=== PATIENT | male | born 1975 | race Caucasian/White ===

== ENCOUNTER 2016-05-26 17:25 | Emergency (ER) | payer MEDICAID ==
[~2016-05-26] VITALS: Ht 172.7 cm; Wt 98.7 kg
[~2016-05-26 17:25] MED LIST: DILANTIN100 MG PO
[2016-05-26 18:48] LABS: BASOPHIL % 0.3 % (0-2); PLATELET COUNT 225 x10^3mcL (130-400); RED CELL DISTRIBUTION WIDTH 14.6 % (11.5-14.5)
[2016-05-26 18:55] LABS: CALCIUM 8.7 mg/dL (8.5-10.1); CARBON DIOXIDE 30.6 mmol/L (21-32); CHLORIDE SERUM 102 mmol/L (98-107); CREATININE SERUM 0.9 mg/dL (0.7-1.3); GFR1 > 60 mL/min; GLUCOSE SERUM 107 mg/dL (74-106); POTASSIUM SERUM 3.5 mmol/L (3.5-5.1); SODIUM SERUM 139 mmol/L (136-145)
[2016-05-26 18:59] LABS: ALBUMIN 3.6 g/dL (3.4-5.0); ALKALINE PHOSPHATASE 78 U/L (46-116); ALT/SGPT 40 U/L (16-63); AST/SGOT 41 U/L (15-37); TOTAL PROTEIN, SERUM 7.5 g/dL (6.4-8.2)
[2016-05-26 20:10] VITALS: BP 144/81
== END 2016-05-26 20:10 | disposition home or self-care (01) ==
LOC: ED 17:25
PROVIDERS: Emergency Medicine
DX: G40.409 Other generalized epilepsy and epileptic syndromes, not intractable, without status epilepticus (principal); S00.03XA Contusion of scalp, initial encounter; S00.512A Abrasion of oral cavity, initial encounter; Z79.899 Other long term (current) drug therapy; W22.8XXA Striking against or struck by other objects, initial encounter; Y93.89 Activity, other specified; Y92.89 Other specified places as the place of occurrence of the external cause; Y99.8 Other external cause status
CPT/HCPCS: J1165; J1885; J2060; J3490; J7030

== ENCOUNTER 2018-05-04 15:59 | Emergency (ER) | payer MEDICAID ==
[~2018-05-04] VITALS: Ht 172.7 cm; Wt 99.8 kg
[2018-05-04 16:04] VITALS: Ht 172.7 cm; Wt 99.8 kg
[2018-05-04 16:59] LABS: CALCIUM 8.5 mg/dL (8.5-10.1); CARBON DIOXIDE 19.3 mmol/L (21-32); CHLORIDE SERUM 102 mmol/L (98-107); CREATININE SERUM 1.1 mg/dL (0.7-1.3); GFR1 > 60 mL/min; GLUCOSE SERUM 126 mg/dL (74-106); POTASSIUM SERUM 3.6 mmol/L (3.5-5.1); SODIUM SERUM 138 mmol/L (136-145)
[2018-05-04 17:04] LABS: ALBUMIN 3.6 g/dL (3.4-5.0); ALKALINE PHOSPHATASE 102 U/L (46-116); ALT/SGPT 141 U/L (16-63); AST/SGOT 125 U/L (15-37); BILIRUBIN TOTAL 0.5 mg/dL (0.20-1.00); TOTAL PROTEIN, SERUM 7.4 g/dL (6.4-8.2)
[2018-05-04 18:59] VITALS: BP 134/88
== END 2018-05-04 18:59 | disposition home or self-care (01) ==
LOC: ED 15:59
PROVIDERS: Emergency Medicine
DX: G40.909 Epilepsy, unspecified, not intractable, without status epilepticus (principal)
CPT/HCPCS: J1165; J2060; J7030

== ENCOUNTER 2018-07-25 19:40 | Emergency (ER) | payer MEDICAID ==
[~2018-07-25] VITALS: Ht 172.7 cm; Wt 104.3 kg
[2018-07-25 19:47] VITALS: Ht 172.7 cm; Wt 104.3 kg
[2018-07-25 20:40] LABS: PLATELET COUNT 283 x10^3mcL (130-400)
[2018-07-25 20:42] LABS: BASOPHIL % 0 % (0-2); RED CELL DISTRIBUTION WIDTH 15.5 % (11.5-14.5)
[2018-07-25 20:46] LABS: CALCIUM 9.6 mg/dL (8.5-10.1); CARBON DIOXIDE 24.1 mmol/L (21-32); CHLORIDE SERUM 98 mmol/L (98-107); CREATININE SERUM 1.2 mg/dL (0.7-1.3); GFR1 > 60 mL/min; GLUCOSE SERUM 114 mg/dL (74-106); POTASSIUM SERUM 4.2 mmol/L (3.5-5.1); SODIUM SERUM 136 mmol/L (136-145)
[2018-07-25 20:50] LABS: ALBUMIN 4.2 g/dL (3.4-5.0); ALKALINE PHOSPHATASE 110 U/L (46-116); ALT/SGPT 72 U/L (16-63); AST/SGOT 84 U/L (15-37); BILIRUBIN TOTAL 0.89 mg/dL (0.20-1.00); TOTAL PROTEIN, SERUM 8.1 g/dL (6.4-8.2)
[2018-07-25 22:12] VITALS: BP 133/86
== END 2018-07-25 22:12 | disposition home or self-care (01) ==
LOC: ED 19:40
PROVIDERS: Emergency Medicine
DX: S05.42XA Penetrating wound of orbit with or without foreign body, left eye, initial encounter (principal); R56.9 Unspecified convulsions; W45.8XXA Other foreign body or object entering through skin, initial encounter; Y93.E1 Activity, personal bathing and showering; Y92.002 Bathroom of unspecified non-institutional (private) residence as the place of occurrence of the external cause; Y99.8 Other external cause status
CPT/HCPCS: J1165; J1885; J2060

== ENCOUNTER 2019-01-17 12:23 | Emergency (ER) | payer MEDICAID ==
[~2019-01-17] VITALS: Ht 172.7 cm; Wt 99.8 kg
[2019-01-17 12:29] VITALS: Ht 172.7 cm; Wt 99.8 kg
[2019-01-17 13:04] LABS: CALCIUM 8.8 mg/dL (8.5-10.1); CARBON DIOXIDE 17.9 mmol/L (21-32); CHLORIDE SERUM 103 mmol/L (98-107); CREATININE SERUM 2.3 mg/dL (0.7-1.3); GFR1 33 mL/min; GLUCOSE SERUM 113 mg/dL (74-106); SODIUM SERUM 142 mmol/L (136-145)
[2019-01-17 13:07] LABS: RED CELL DISTRIBUTION WIDTH 14.4 % (11.5-14.5)
[2019-01-17 13:09] LABS: ALBUMIN 3.6 g/dL (3.4-5.0); ALKALINE PHOSPHATASE 99 U/L (46-116); ALT/SGPT 21 U/L (16-63); AST/SGOT 19 U/L (15-37); BILIRUBIN TOTAL 0.3 mg/dL (0.20-1.00); TOTAL PROTEIN, SERUM 7.8 g/dL (6.4-8.2)
[2019-01-17 13:13] LABS: AMPHETAMINE QUAL UR POSITIVE (See below)
[2019-01-17 13:28] LABS: BASOPHIL % 0 % (0-2); PLATELET COUNT 412 x10^3mcL (130-400)
[2019-01-17 15:43] VITALS: BP 134/100
== END 2019-01-17 15:43 | disposition home or self-care (01) ==
LOC: ED 12:23
PROC: 3E033GC Introduction of Other Therapeutic Substance into Peripheral Vein, Percutaneous Approach (ICD-10-PCS; principal; 2019-01-17)
DX: R56.9 Unspecified convulsions (principal); F15.10 Other stimulant abuse, uncomplicated; Z91.14 Patient's other noncompliance with medication regimen
CPT/HCPCS: J1165

== ENCOUNTER 2019-08-15 12:42 | Inpatient (IN) | payer MEDICAID ==
[~2019-08-15] VITALS: Ht 172.7 cm; Wt 100.7 kg
[2019-08-15 12:50] VITALS: Ht 172.7 cm; Wt 100.7 kg
[2019-08-15 13:37] LABS: CARBON DIOXIDE 11.7 mmol/L (21-32); CHLORIDE SERUM 101 mmol/L (98-107); CREATININE SERUM 1.7 mg/dL (0.7-1.3); GFR1 47 mL/min; GLUCOSE SERUM 182 mg/dL (74-106); POTASSIUM SERUM 3.3 mmol/L (3.5-5.1); SODIUM SERUM 142 mmol/L (136-145)
[2019-08-15 13:42] LABS: ALBUMIN 4.3 g/dL (3.4-5.0); ALKALINE PHOSPHATASE 141 U/L (46-116); ALT/SGPT 114 U/L (16-63); AST/SGOT 151 U/L (15-37); BILIRUBIN TOTAL 0.76 mg/dL (0.20-1.00); TOTAL PROTEIN, SERUM 8.7 g/dL (6.4-8.2)
[2019-08-15 14:13] LABS: BASOPHIL % 0.2 % (0-2); PLATELET COUNT 347 x10^3mcL (130-400)
[2019-08-15] MEDS ORDERED: KEPPRA500 MG PO (17:09)
[2019-08-15 17:10] LABS: UA SPECIFIC GRAVITY 1.025 (1.005-1.035); microscopic required? YES; urine erythrocyte TRACE (NEGATIVE)
[2019-08-15] MEDS ORDERED: DILANTIN100 MG PO (17:10)
[2019-08-15 17:19] LABS: AMPHETAMINE QUAL UR NONE DETECTED (See below)
[2019-08-15 19:31] LABS: IRON 249 ug/dL (65-170); TOTAL IRON BINDING CAPACITY 290 ug/dL (250-450)
[2019-08-15 19:49] LABS: RED BLOOD CELLS 4.89 M/mm3 (4.52-5.90)
[2019-08-15 22:30] VITALS: BP 126/80
[2019-08-16 06:12] VITALS: BP 130/779
[2019-08-16 06:45] LABS: BASOPHIL % 0.5 % (0-2); PLATELET COUNT 212 x10^3mcL (130-400)
[2019-08-16 06:59] LABS: ALBUMIN 3.4 g/dL (3.4-5.0); BILIRUBIN DIRECT 0.48 mg/dL (0.0-0.2); BILIRUBIN TOTAL 1.6 mg/dL (0.20-1.00); CALCIUM 8.4 mg/dL (8.5-10.1); CARBON DIOXIDE 23.1 mmol/L (21-32); CREATININE SERUM 1.9 mg/dL (0.7-1.3); MAGNESIUM 2.6 mg/dL (1.8-2.4); PHOSPHOROUS 5.1 mg/dL (2.5-4.9); POTASSIUM SERUM 4.1 mmol/L (3.5-5.1); TOTAL PROTEIN, SERUM 6.8 g/dL (6.4-8.2)
[2019-08-16 07:11] LABS: RED CELL DISTRIBUTION WIDTH 14.9 % (11.5-14.5)
[2019-08-16 08:13] VITALS: BP 119/75
[2019-08-16 12:08] VITALS: BP 120/80
[2019-08-16 12:32] VITALS: BP 129/87
[2019-08-16] MEDS ORDERED: EXTENDED PHENY200 MG PO (17:15)
== END 2019-08-16 17:44 | disposition home or self-care (01) | DRG 53 ==
LOC: ED 12:42 → DU 17:00
PROVIDERS: Emergency Medicine; ADMIT Family Medicine; ATTEND Family Medicine
DX: G40.409 Other generalized epilepsy and epileptic syndromes, not intractable, without status epilepticus (principal); N17.0 Acute kidney failure with tubular necrosis; E87.2 Acidosis; D72.829 Elevated white blood cell count, unspecified; D50.9 Iron deficiency anemia, unspecified; E87.6 Hypokalemia; R74.0 Nonspecific elevation of levels of transaminase and lactic acid dehydrogenase [LDH]; Z83.3 Family history of diabetes mellitus; Z84.1 Family history of disorders of kidney and ureter
CPT/HCPCS: 83880; G0378; G0480; J1165; J2060; J7030; J7050; Q0092

== ENCOUNTER 2019-09-28 19:57 | Emergency (ER) | payer MEDICAID ==
[~2019-09-28] VITALS: Ht 172.7 cm; Wt 100.7 kg
[~2019-09-28 19:57] MED LIST changes: +EXTENDED PHENY200 MG PO; +KEPPRA500 MG PO
[2019-09-28 20:02] VITALS: Ht 172.7 cm; Wt 100.7 kg
[2019-09-28 20:53] LABS: CALCIUM 8.4 mg/dL (8.5-10.1); CARBON DIOXIDE 11.9 mmol/L (21-32); CHLORIDE SERUM 102 mmol/L (98-107); CREATININE SERUM 1.4 mg/dL (0.7-1.3); GFR1 59 mL/min; GLUCOSE SERUM 151 mg/dL (74-106); POTASSIUM SERUM 4.4 mmol/L (3.5-5.1); SODIUM SERUM 138 mmol/L (136-145)
[2019-09-28 20:57] LABS: ALBUMIN 3.7 g/dL (3.4-5.0); ALKALINE PHOSPHATASE 102 U/L (46-116); ALT/SGPT 62 U/L (16-63); AST/SGOT 78 U/L (15-37); BILIRUBIN TOTAL 0.5 mg/dL (0.20-1.00); TOTAL PROTEIN, SERUM 7.3 g/dL (6.4-8.2)
[2019-09-28 23:06] LABS: AMPHETAMINE QUAL UR NONE DETECTED (See below)
[2019-09-28 23:20] VITALS: BP 118/79
== END 2019-09-28 23:20 | disposition home or self-care (01) ==
LOC: ED 19:57
PROVIDERS: Specialist
DX: G40.909 Epilepsy, unspecified, not intractable, without status epilepticus (principal); S66.911A Strain of unspecified muscle, fascia and tendon at wrist and hand level, right hand, initial encounter; R89.2 Abnormal level of other drugs, medicaments and biological substances in specimens from other organs, systems and tissues; H11.32 Conjunctival hemorrhage, left eye; X58.XXXA Exposure to other specified factors, initial encounter; Y93.89 Activity, other specified; Y92.89 Other specified places as the place of occurrence of the external cause; Y99.8 Other external cause status
CPT/HCPCS: 82962; G0480; J1165; J2060; J7030; Q0092